=== PATIENT | male | born 1995 | race Hispanic/Latino ===

== ENCOUNTER 2024-04-20 19:26 | Emergency (ER) | payer SELFPAY ==
[~2024-04-20] VITALS: Ht 172.7 cm; Wt 90.7 kg
[2024-04-20 19:43] VITALS: BP 128/88; PULSE 66; RESP 20; TEMP 98.6; O2SAT 100
--- NOTE | 2024-04-20 20:42 | ERN ---
ED Note History of Present Illness Stated Complaint: RIGHT ANKLE INJURY Chief Complaint: Ankle Problem Time Seen by MD: 19:29 Time Seen by Midlevel: 19:33 Dictation: 29-year-old male with no past medical history coming in for right ankle pain after playing out with his kids he stepped on a brush and twisted his right ankle. Denies falling to the ground, denies any head injury. No other complaints. Allergies: Coded Allergies: No Known Drug Allergies (Unverified Allergy, Unknown, 04/20/24) Past Medical History Past Medical History: No Pertinent History Surgical History: None Review of System Dictation Constitutional: Negative for fever,chills, and weight loss Eyes: Negative for injury, pain,redness, and discharge ENT: Negative for injury,pain or swelling Cardiovascular: Negative for chest pain, palpitations, and edema Respiratory: Negative for shortness of breath, cough, and wheezing, Abdomen/GI: Negative for abdominal pain, nausea, vomiting, diarrhea, and constipation Back: Negative for injury and pain : Negative for injury, bleeding and discharge MS/Extremity: Negative for injury and deformity complaining of right ankle pain Skin: Negative for rash, and discoloration Neuro: Negative for headache, weakness, numbness, tingling, and seizure Psych: Negative for suicide ideation, homicidal ideation, and hallucinations Review of Systems: was completed Initial Vital Sign VS Vital Signs Date Time Temp Pulse Resp B/P (MAP) Pulse Ox O2 Delivery O2 Flow Rate FiO2 04/20/24 19:28 98.1 86 16 138/73 96 Room Air 0 04/20/24 19:43 21 Physical Exam Dictation General: awake, alert, NAD Head/Face: Normocephalic, atraumatic Eyes: PERRL, EOMI, vision at baseline ENT: oral cavity clear, TMs clear, no signs of infection Neck: Trachea midline, supple, no nuchal rigidity Cardiovascular: RRR, normal S1/S2, No MRGs, no JVD Respiratory: CTAB, no respiratory distress, No rales or wheezes Abdomen: Soft, non-tender, non-distended, normal bowel sounds, no guarding or rebound. Skin: Warm, dry, normal turgor, no rash MS/Extremity: Pulses equal, no cyanosis, neurovascular intact, limited ROM to the right ankle, there is moderate swelling, distal pulses intact, extremities warm to touch. Sensation intact. Neuro: COAx4, GCS 15, strength 5/5, CN 2-12 intact, normal cerebellar exam, normal gait, Psych: Normal behavior, mood, and affect normal Results (Laboratory/Radiology) X-RAY Comment: [facility] [address] [place] [address] IMAGING REPORT Signed PATIENT: FRANSISCO ZURITA MR#: [id number] : 1995 SEX: M AGE: 29 LOCATION: [facility] ORDER 34 STATUS: REG ER REPORT#: [id number] SERVICE 32 REASON: fall ORDERING PHYSICIAN: MAGDA SORIANO NP PROCEDURE: [id number] - ANKLE 2VWS RT RIGHT ANKLE RADIOGRAPHS - 3 VIEWS INDICATION: Pain COMPARISON: None FINDINGS: AP, lateral, and oblique views. Nondisplaced comminuted lateral malleolus fracture. Medial and posterior malleolus are intact. The talar dome is intact. Ankle mortise and tibial plafond are well maintained. No significant joint effusion is present. No radiopaque foreign body noted. IMPRESSION: Nondisplaced comminuted lateral malleolus fracture. DICTATED BY: AWA CASE MD DATE: 04/20/242034 ELECTRONICALLY SIGNED BY: AWA CASE MD DATE: 04/20/242041 ED Course ED Course Orders Procedure Category Date Status Time Ankle 2vws Rt RAD 04/20/24 Resulted 19:33 Vital Signs Date Time Temp Pulse Resp B/P (MAP) Pulse Ox O2 Delivery O2 Flow Rate FiO2 04/20/24 19:43 98.6 66 20 128/88 100 Room Air* 0 21 04/20/24 19:28 98.1 86 16 138/73 96 Room Air 0 Medical Decision Making MDM MDM: Differential diagnosis: Rationale: Tests considered and ordered secondary to shared decision making include: Previous outside records reviewed: Old ER visits. Risk of complication and/or morbidity or mortality of patient management: None Medications-Per medication reconciliation Need for hospitalization: Patient does not meet criteria for hospitalization. Need for emergency major/minor surgery: No There are no social concerns with this patient. Prescription drug management Prescriptions will include symptomatic care Patient's prior external medical records from other ER visits were reviewed by me as indicated. Prior testing and results from previous visits were reviewed. Prior tests were taken into account with medical decision making and resource utilization, independent historian/historians were used to obtain complete medical history. I independently interpreted the test that were performed, results were reviewed by me and considered findings on radiology if ordered. Medical management and examination interpretation discussions were had by me with other qualified healthcare professionals as indicated for the patient's care. 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 Keep your extremity elevated you can ice it to prevent swelling and help with the pain. Take [id number] Tylenol or Motrin for pain control. Return if you have any discoloration Referrals: SELF,REFERRAL (PCP) MARK CROFT MD Time of Disposition: 20:42 I have reviewed the case, and I agree with, Diagnosis and Plan MAGDA SORIANO NP Apr 20, 2024 20:42
[2024-04-20] MEDS: HYDROcodone/APAP 5/325 1 TAB TABLET PO STA (21:02)
== END 2024-04-20 21:10 | disposition home or self-care (01) ==
LOC: EDH 19:26
DX: S82.64XA Nondisplaced fracture of lateral malleolus of right fibula, initial encounter for closed fracture (principal); X50.1XXA Overexertion from prolonged static or awkward postures, initial encounter; Y93.89 Activity, other specified; Y92.89 Other specified places as the place of occurrence of the external cause; Y99.8 Other external cause status
CPT/HCPCS: 29515; 73600; 99283